=== PATIENT | male | born 1935 | race Two or more races ===

== ENCOUNTER 2017-10-01 12:51 | Inpatient (IN) | payer OTHER ==
[~2017-10-01] VITALS: Ht 182.9 cm; Wt 83.9 kg
[2017-10-01] MEDS ORDERED: ELIQUIS5 MG (13:25)
[2017-10-05] MEDS ORDERED: TOPROL XL25 M1 PO (17:46)
[2017-10-05] MEDS ORDERED: KEPPRA500 MG PO (17:46)
[2017-10-05] MEDS ORDERED: PROTONIX40 MG PO (17:46)
[2017-10-05] MEDS ORDERED: FOLIC ACID1 MG PO (17:46)
[2017-10-05] MEDS ORDERED: MULTI VITAMIN1 EACH PO (17:46)
[2017-10-05] MEDS ORDERED: MECLIZINE HCL12.5 MG PO (17:46)
[2017-10-05] MEDS ORDERED: THIAMINE HCL100 MG PO (17:46)
== END 2017-10-05 19:35 | DRG 558 ==
LOC: ER 12:51 → MEDI 10-02 13:58
PROC: B345ZZZ Ultrasonography of Bilateral Common Carotid Arteries (ICD-10-PCS; 2017-10-02)
PROC: B348ZZZ Ultrasonography of Bilateral Internal Carotid Arteries (ICD-10-PCS; 2017-10-02)
PROC: B246ZZZ Ultrasonography of Right and Left Heart (ICD-10-PCS; 2017-10-02)
PROC: B030Y0Z Magnetic Resonance Imaging (MRI) of Brain using Other Contrast, Unenhanced and Enhanced (ICD-10-PCS; 2017-10-02)
PROC: 4A12X4Z Monitoring of Cardiac Electrical Activity, External Approach (ICD-10-PCS; 2017-10-02)
PROC: 4A00X4Z Measurement of Central Nervous Electrical Activity, External Approach (ICD-10-PCS; principal; 2017-10-04)
DX: M62.82 Rhabdomyolysis (principal); E86.0 Dehydration
CPT/HCPCS: 70545